=== PATIENT | male | born 1930 | race Caucasian/White ===

== ENCOUNTER → 2016-10-07 | Outpatient (CLI) | payer MEDICARE, OTHER ==
[~2016-10-07] MED LIST: ALLO100T PO; ASPI81TA60 PO; BACI500O8 TOP; BACITAB3 PO; BETA0.0543 TOP; CETI10TA PO; CLOP75TA2 PO; CRES10TA32 PO; DILT180C53 PO; DSS100CA PO; ECOT81TA5 PO; FENO48TA2 PO; FURO20TA2 PO; FURO40TA2 PO; GLIP5TAB8 PO; GLUC10TA3 PO; INSUHUMDS SC; JUBL1SOL TOP; LISI10TA4 PO; LOVE1INJ2 SC; MILKSUS PO; OMEG10006 PO; PROT1TAB2 PO; SENO8.6T2 PO; SODI0.65; TYLE325T5 PO; ULTR50TA PO; WELC625T PO
--- NOTE | 2016-10-07 11:32 | RADONC ---
RADIATION ONCOLOGY FOLLOWUP NOTE DATE: 10/07/2016 CHART NUMBER: [id number] DIAGNOSIS: Prostate cancer. STAGE: II, [id number]. ECOG PERFORMANCE STATUS: 0. FOLLOWUP NOTE: Mr. 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 The patient presents today reporting that he is doing quite well with no complaints at this time related to his radiation therapy or disease. He has no urinary or bowel difficulties and no bone pain. The patient's review of systems is noncontributory. He denies nausea, vomiting, fevers, chills, night sweats, diplopia, headaches, anxiety or depression, anorexia, weight loss, visual disturbances, chest pain, urinary or bowel difficulties, bone pain, or neurological problems. PHYSICAL EXAMINATION: The patient is a well-developed, well-nourished male in no acute distress. HEENT exam is normocephalic, atraumatic. Extraocular movements are intact. There is no palpable cervical, supraclavicular, infraclavicular, axillary, or inguinal lymphadenopathy present. Lungs are clear to auscultation and percussion. Heart has a regular rate and rhythm. Abdomen is benign with no hepatosplenomegaly, masses, or tenderness. Rectal examination reveals a normal anal sphincter tone. His prostate is smooth with no evidence of nodularity. Skeletal examination reveals no tenderness to pressure or percussion of the bony skeleton. Extremities reveal no clubbing, cyanosis, or edema. Neurologic exam is grossly intact as is the remainder of the physical examination. ASSESSMENT: The patient is clinically LUIS at this time and will be seen by us again in 1 year for further followup. He will also continue be followed by his other physicians as well. cc: Fortino Tomlin MD *Anneliese Frausto MD
== END ==
LOC: M ONCR 10:26
PROVIDERS: ATTEND Radiology Radiation Oncology
DX: C61 Malignant neoplasm of prostate (principal)

== ENCOUNTER → 2017-10-06 | Outpatient (CLI) | payer MEDICARE, OTHER | LOC: M ONCR 10:27 | DX: C61 Malignant neoplasm of prostate (principal) | CPT/HCPCS: G0463 ==

== ENCOUNTER → 2018-08-24 | Outpatient (REF) | payer MEDICARE, OTHER ==
[~2018-08-24] MED LIST changes: +BACITAB PO; -BACITAB3 PO; +COLE625TAB PO; +DILT180C22 PO; -DILT180C53 PO; +MILK120011 PO; -MILKSUS PO; -SENO8.6T2 PO; +SENO8.6T5 PO; -ULTR50TA PO; +ULTR50TA8 PO; -WELC625T PO
[2018-08-24 13:38] LABS: ALBUMIN 4.3 GM/DL (3.2-5.2); BILIRUBIN,TOTAL 0.4 MG/DL (0.2-1.0); CALCIUM LEVEL 8.8 MG/DL (8.8-10.2); CHOLESTEROL RISK RATIO 3.162 (<5); CREATININE FOR GFR 1.84 MG/DL (0.70-1.30); GLOMERULAR FILTRATION RATE 37.3 (>35); PROSTATIC SPECIFIC AG MONITOR 0.26 NG/ML (< 4.00); THYROID STIMULATING HORMONE 2.93 uIU/ML (0.358-3.740); TOTAL PROTEIN 7.2 GM/DL (6.4-8.2)
[2018-08-24 14:07] LABS: CREATININE, URINE 38.8 MG/DL; MALB URINE SIEMENS 51.3 MG/L; MAU/CREAT RATIO 132.2 MCG/MG (0.0-30.0)
[2018-08-24 15:49] LABS: HEMATOCRIT 38.9 % (42.0-52.0); HEMOGLOBIN 12.4 g/dl (13.5-17.5); MEAN CORPUSCULAR HEMOGLOBIN 28.7 pg (27.0-33.0); MEAN CORPUSCULAR HGB CONC 31.9 g/dl (32.0-36.5); PLATELET COUNT, AUTOMATED 246 10^3/uL (150-450); RED BLOOD COUNT 4.32 10^6/uL (4.30-6.10); WHITE BLOOD COUNT 8.5 10^3/uL (4.0-10.0)
== END ==
LOC: M LAB REF 12:52
PROVIDERS: ATTEND Family Medicine
DX: I10 Essential (primary) hypertension (principal); E11.9 Type 2 diabetes mellitus without complications; E78.2 Mixed hyperlipidemia